=== PATIENT | female | born 1965 | race Two or more races ===

== ENCOUNTER → 2020-03-12 | Outpatient (CLI) | payer OTHER ==
[2015-10-14 10:02] VITALS: BP 154/77
[~2020-03-12] MED LIST: AMOX875T PO; HYDR-3164 PO; MECL12.574 PO; ONDA4TAB10 SL
--- NOTE | 2020-03-12 09:43 | RAD ---
EXAM: Abdomen sonogram; pelvic sonogram. HISTORY: Pain. TECHNIQUE: Sonographic imaging of the abdomen and transabdominal and transvaginal sonographic imaging of the pelvis was performed. COMPARISON: 10/02/2015. FINDINGS: The liver is normal in size. There is hepatic steatosis. No focal hepatic lesion is seen. T he gallbladder is unremarkable. The kidneys are unremarkable. The visualized portions of the pancreas , aorta and vena cava are unremarkable. The common bile duct is normal in caliber. The spleen is norm al in size. The uterus is normal in size. There are multiple uterine fibroids, the largest of which measures 3.9 cm. The endometrial stripe measures 6.7 mm in thickness. The right ovary is obscured due to bowel gas . The left ovary is normal in size and demonstrates normal blood flow. There is a 1.0 cm left ovarian follicle/follicular cyst. There is no pelvic free fluid. IMPRESSION: 1. Hepatic steatosis. 2. Fibroid uterus. The largest fibroid measures 3.9 cm. 3. Endometrial stripe measuring 6.7 mm. This is within normal limits if this is a premenopausal patie nt. This is mildly thickened for a postmenopausal patient. 4. 1.0 cm left ovarian follicle/follicular cyst. Electronically signed by: Mirtha Bowens MD (03/12/2020 9:41 AM) [id number]
== END ==
LOC: US 08:25
PROVIDERS: ATTEND Nurse Practitioner
DX: D25.9 Leiomyoma of uterus, unspecified (principal); N83.292 Other ovarian cyst, left side; N92.4 Excessive bleeding in the premenopausal period; K76.0 Fatty (change of) liver, not elsewhere classified
CPT/HCPCS: 76700; 76830; 76856